=== PATIENT | male | born 1970 | race Caucasian/White ===

== ENCOUNTER 2018-11-21 17:06 | Emergency (ER) | payer OTHER ==
[~2018-11-21] VITALS: Ht 180.3 cm; Wt 102.1 kg
[2018-11-21 17:56] VITALS: BP 156/104
[2018-11-21] MEDS ORDERED: TETRACAINE 0.5% OPHTH SOLUTION 4ML BOTTLE. ONE (19:33)
[2018-11-21] MEDS ORDERED: FLUORESCEIN OPHTH TEST STRIP. ONE (19:33)
[2018-11-21] MEDS ORDERED: FLUORESCEIN OPHTH TEST STRIP. OU ONE (20:15)
[2018-11-21] MEDS ORDERED: TETRACAINE 0.5% OPHTH SOLUTION 4ML BOTTLE. OU ONE (20:15)
[2018-11-21] MEDS ORDERED: ERYT1OIN6 OP (20:23)
[2018-11-21] MEDS ORDERED: PRED5DRO16 OS (20:23)
[2018-11-21] MEDS ORDERED: HYDR-3164 PO (20:23)
--- NOTE | 2018-11-21 20:23 | PHYS DOC ---
Past Medical History Past Medical History: GERD, Hypertension Additional Past Medical Histor: BRAXTON'S ESOPHAGUS Past Surgical History: Other Additional Past Surgical Histo: R SHOULDER SX X 2, BUNIONECTOMY Alcohol Use: Occasionally Drug Use: None Adult General Chief Complaint Chief Complaint: EYE PROBLEMS [facility] HPI Patient is a 48-year-old male who presents with complaint of pain and injury to his left eye. Patient states that he was carrying a potted tree into the house and when he was going through the door one of the branches had gotten caught and came back and slapped him on the eye. He states that he has moderate pain in his left eye, feeling like there is a foreign body. He states that the thing that concerned him the most was that he noticed a definite change in his visual acuity, stating that vision was not even improving with corrective lenses. He also noted that he had decreased visual acuity on near vision. Review of Systems Review of Systems Constitutional: Denies fever or chills [] Eyes: Positive blurred vision and left eye pain [] Respiratory: Denies cough or shortness of breath [] Cardiovascular: No additional information not addressed in HPI [] Neurologic: Denies headache, focal weakness or sensory changes [] Current Medications Current Medications Current Medications Medications (Trade) Dose Ordered Sig/Juan Pablo Start Time Stop Time Status Last Admin Dose Admin Fluorescein Sodium (Ful-Melissa) 1 strip 1X ONCE 11/21/18 20:15 11/21/18 20:16 DC 11/21/18 20:12 1 STRIP Tetracaine HCl (Tetracaine) 1 drop 1X ONCE 11/21/18 20:15 11/21/18 20:16 DC 11/21/18 20:12 1 DROP Allergies Allergies Allergies Coded Allergies Type Severity Reaction Last Updated Verified No Known Drug Allergies 11/21/18 No Physical Exam Physical Exam Constitutional: Well developed, well nourished, no acute distress, non-toxic appearance. [] HENT: Normocephalic, atraumatic. [] Eyes: PERRLA, EOMI, conjunctiva normal, no discharge. Fluoroscopy seen examination of left eye demonstrates a small approximately 3 mm in length abrasion to the sclera at the 6 o'clock position approximately 3 mm from border of the cornea. No foreign body identified. Tonometry exam demonstrated 18 mmHg followed by 16 mmHg and again 16 mmHg. [] Cardiovascular: Regular rate and rhythm[] Lungs & Thorax: Bilateral breath sounds clear to auscultation [] Current Patient Data Vital Signs Vital Signs Date Time Temp Pulse Resp B/P (MAP) Pulse Ox O2 Delivery O2 Flow Rate FiO2 11/21/18 17:56 98.1 96 18 156/104 (121) 98 Room Air 98.1 EKG EKG [] Radiology/Procedures Radiology/Procedures [] Course & Med Decision Making Course & Med Decision Making Pertinent Labs and Imaging studies reviewed. (See chart for details) Visual acuity was reviewed. Given decrease in visual acuity, both fluorescein examination as well as tonometry was performed on the left eye. The on-call geology scientist, Dr. Sanchez, was paged but did not return call after 2 pages. Patient ultimately was discharged home with instructions to contact ophthalmology on Friday. Patient instructed to return to the emergency room if symptoms worsen. Dragon Disclaimer Dragon Disclaimer This electronic medical record was generated, in whole or in part, using a voice recognition dictation system. Departure Departure Impression: Primary Impression: Abrasion of sclera of left eye Additional Impression: Decreased visual acuity Disposition: HOME, SELF-CARE Condition: STABLE Referrals: JOSEY CROSS (PCP) BERNARDINO SANCHEZ MD Patient Instructions: Eye - Blurred Vision, Eye - Corneal Abrasion Scripts Prednisolone Acetate (PREDNISOLONE ACETATE) 5 Ml Drops.susp 1 DROP OS QID for 7 Days, #5 ML Prov: MARGOT AVENDANO Jr. DO 11/21/18 Erythromycin Base (Erythromycin) 1 Gm Oint...g. 1 GM OP TID for 7 Days, #3.5 GM Prov: MARGOT AVENDANO Jr. DO 11/21/18 Hydrocodone/Apap 5-325 (NORCO 5-325 TABLET) 1 Each Tablet 1 EACH PO PRN Q6HRS PRN for PAIN, #15 as needed for pain Prov: MARGOT AVENDANO Jr. DO 11/21/18 Problem Qualifiers Primary Impression: Abrasion of sclera of left eye Encounter type: initial encounter Qualified Codes: S05.8X2A - Other injuries of left eye and orbit, initial encounter MARGOT AVENDANO Jr. DO Nov 21, 2018 20:23
== END 2018-11-21 20:39 | disposition home or self-care (01) ==
LOC: ER 17:06
DX: S05.8X2A Other injuries of left eye and orbit, initial encounter (principal); H53.8 Other visual disturbances; I10 Essential (primary) hypertension; K21.9 Gastro-esophageal reflux disease without esophagitis; W22.8XXA Striking against or struck by other objects, initial encounter; Y93.89 Activity, other specified; Y92.098 Other place in other non-institutional residence as the place of occurrence of the external cause; Y99.8 Other external cause status
CPT/HCPCS: 99283

== ENCOUNTER → 2020-11-10 | Outpatient (CLI) | payer OTHER ==
[~2020-11-10] MED LIST: ERYT1OIN6 OP; HYDR-3164 PO; PRED5DRO16 OS
--- NOTE | 2020-11-10 15:20 | KCIC ---
Examination: MRI of the left knee without contrast HISTORY: History of chronic left knee pain after twisting injury COMPARISON: None available TECHNIQUE: Multiplanar, multisequence MR imaging of the left knee was performed without contrast FINDINGS: The anterior cruciate ligament, posterior cruciate ligament appears intact. The medial meniscus, late ral meniscus appears intact. The medial collateral ligament appears intact. Mild increased T2 signal identified about the medial collateral ligament. Lateral collateral ligamentous complex appearing the fibular collateral ligament, biceps femoris and popliteus tendon appears intact. The extensor mechanism is intact Small knee joint effusion. There is mild superficial fraying of cartilage identified in the medial, lateral, patellofemoral comp artments. Medial, lateral retinaculum appears intact. Bipartite patella identified. Small knee joint effusion with a small popliteal cyst. Mild trabecular edema identified in the medial femoral condyle. IMPRESSION: 1. Mild increased T2 signal identified about the medial collateral ligament could be grade 1 sprain. 2. Small knee joint effusion with a small popliteal cyst. 3. Bipartite patella. 4. Grade I chondromalacia medial, lateral, patellofemoral compartments. Electronically signed by: Homer Dowling MD (11/10/2020 3:17 PM) [id number]
== END ==
LOC: KCIC MRI 14:30
PROVIDERS: ATTEND Family Medicine
DX: M25.462 Effusion, left knee (principal); M71.22 Synovial cyst of popliteal space [Baker], left knee; M94.262 Chondromalacia, left knee; M23.92 Unspecified internal derangement of left knee
CPT/HCPCS: 73721